=== PATIENT | male | born 1960 | race Caucasian/White ===

== ENCOUNTER 2019-10-31 09:45 | Day surgery (SDC) | payer BC ==
[~2019-10-31] VITALS: Ht 177.8 cm; Wt 88.0 kg
[2019-10-31] VITALS (8 sets, daily range): BP systolic 141–151; BP diastolic 83–88
--- NOTE | 2019-10-31 06:52 | Anethesia Preoperative Eval ---
Anesthesia Pre-op PMH/ROS General Date of Evaluation: Oct 31, 2019 Time of Evaluation: 06:51 Anesthesiologist: santos ASA Score: ASA 2 Mallampati Score Class I : Soft palate, uvula, fauces, pillars visible Class II: Soft palate, uvula, fauces visible Class III: Soft palate, base of uvula visible Class IV: Only hard plate visible Mallampati Classification: Class II Surgeon: iva Diagnosis: gerd Surgical Procedure: egd/colonoscopy Social History: current smoker Family History: no anesthesia problems Allergies: Coded Allergies: PENICILLINS (Verified Allergy, Severe, 10/08/14) lips get swollen Medications: see eMAR Patient NPO?: Yes Past Medical History Gastrointestinal/Genitourinary: Reports: GERD Anesthesia Pre-op Phys. Exam Physician Exam Constitutional: NAD Neurologic: CN 2-12 intact Cardiovascular: RRR Respiratory: CTA Gastrointestinal: S/NT/ND Airway Exam Mallampati Score: Class II MO: limited Neck: flexible TMD: 2fb ROM: limited Anesthesia Pre-op A/P Risk Assessment & Plan Assessment: asa2 Plan: mac Status Change Before Surgery: No Pre-Antibiotics Drug: Lori Rose MD Oct 31, 2019 06:52
[~2019-10-31 09:45] MED LIST: Atropine Inj 1mg/10ml Syr IV PRN; DiphenhydrAMINE 50mg/ml Inj IVP PRN; LR 1000ml 1,000 ML IVLG SCH; Midazolam 2mg/2ml Inj IVP PRN; ZANTAC150 MG ORAL; fentaNYL 100 mcg/2 mL IV PRN
--- NOTE | 2019-10-31 10:23 | Short Stay Surgery H&P ---
History of Present Illness History of Present Illness Chief Complaint Screening colonoscopy. Screening Upper GI. endoscopy HPI Arnie Yung is a 59 year old male who was admitted on for Screening colon and Screening Upper GI tract. Patient History Allergies: Coded Allergies: PENICILLINS (Verified Allergy, Severe, 10/08/14) lips get swollen Medication History Scheduled Ranitidine Hcl* (Zantac*), 150 MG ORAL DAILY, (Reported) Review of Systems Cardiovascular: Reports: no symptoms Respiratory: Reports: no symptoms Skeletal: Reports: no symptoms Gastrointestinal: Reports: no symptoms Genitourinary: Reports: no symptoms Neurologic: Reports: no symptoms Endocrine: Reports: no symptoms Hematologic: Reports: no symptoms Physical Exam Skin: normal HENT: normal Heart: normal Lungs: normal Abdomen: normal Extremities: normal Genitourinary: normal Plan Plan of Care Upper and lower Gi endoscopies and possible biopsies. Preop Interventions None. Summary of Findings See the reports. Attestation Are the patient's medical conditions optimized for surgery? Attestation Response: yes Unique Rose MD Oct 31, 2019 10:22
--- NOTE | 2019-10-31 10:23 | Pre-Procedure Note/Attestation ---
Pre-Procedure Note/Attestation Complete Prior to Procedure Planned Procedure: left Procedure Narrative: Examination of the upper and lower GI tract via endoscopy. Indications for Procedure Pre-Operative Diagnosis: None. Attestation I attest that I discussed the nature of the procedure; its benefits; risks and complications; and alternatives (and the risks and benefits of such alternatives ), prior to the procedure, with the patient (or the patient's legal quality assurance representative). I attest that, if there was a reasonable possibility of needing a blood transfusion, the patient (or the patient's legal quality assurance representative) was given the [place] [employer] standardized written summary, pursuant to the [place] Blood Safety Act ([place] Health and Safety Code # 1645, as amended). I attest that I re-evaluated the patient just prior to the surgery and that there has been no change in the patient's H&P, except as documented below: Unique Rose MD Oct 31, 2019 10:23
[2019-10-31] MEDS ORDERED: TYLENOL325 M1 PO (10:25)
[2019-10-31] MEDS ORDERED: LR 1000ml ONE (11:00)
[2019-10-31] MEDS ORDERED: Propofol 200mg/20ml IV ONE (11:00)
[2019-10-31] MEDS ORDERED: Lidocaine 1% MPF 10mg/ml 5ml ONE (11:00)
[2019-10-31] MEDS ORDERED: Atropine Sulfate 0.4mg/ml inj ONE (11:00)
--- NOTE | 2019-10-31 11:50 | Endoscopy Procedure Note ---
Endoscopy Procedure Note General Indication for Procedure: Screening colon and upper GI Tract Procedures Performed: EGD - Small hiatal hernia and mild gastroduodentis ; biopsies obtaind from the gastric and duodenal bulb areas., colonoscopy - Poor colon preparation with finding of 5 mm pedunculated hyperplastic polyp at rectosigmoid that was removed by cold snare. Highly redundant left colon. Minimal internal hemorrhoids. Specimen: yes Pt Tolerated Procedure Well: Yes Estimated Blood Loss: none Anesthesia Anesthesiologist: Dr. Otero Anesthesia: moderate sedation Medications Medication Given: see anesthesia record Inserted Devices Implant(s) used?: No Quality Quality of Bowel Preparation: Poor Did scope reach the cecum?: Yes Was there any complications?: No GI Core Measures 50 yrs or older w/o bx or poly: Yes 10yrs. F/U recommended: Yes <3yrs. since last colonoscopy: No Med reason:<3 yrs.: Last colonoscopy >= to 3yrs: Yes Unique Rose MD Oct 31, 2019 11:50
--- NOTE | 2019-10-31 11:51 | Discharge Instructions ---
Discharge Instructions Discharge Instructions Follow up with: call for appointment to see the doctor next week. For Congestive Heart Failure Reminder Report to your physician any weight gain of 5 pounds or more in one week. Unique Rose MD Oct 31, 2019 11:51
--- NOTE | 2019-10-31 12:35 | Immediate Post-Op Evaluation ---
Immediate Post-Op Evalulation Immediate Post-Op Evalulation Procedure: egd/[id number] w/bx Date of Evaluation: Oct 31, 2019 Time of Evaluation: 12:03 IV Fluids: 425ml lr Blood Products: none Estimated Blood Loss: negligible Blood Pressure Systolic: 147 Blood Pressure Diastolic: 87 Pulse Rate: 62 Respiratory Rate: 18 O2 Sat by Pulse Oximetry: 100 Temperature (Fahrenheit): 97.0 Pain Score (1-10): 0 Nausea: No Vomiting: No Complications none Patient Status: awake, reacts, patent Hydration Status: adequate Drug: Lori Rose MD Oct 31, 2019 12:35
--- NOTE | 2019-10-31 12:36 | 48 Hour Post Anesthesia Eval ---
Post Anesthesia Evaluation Procedure: egd/[id number] w/bx Date of Evaluation: Oct 31, 2019 Time of Evaluation: 12:05 Blood Pressure Systolic: 148 0: 88 Pulse Rate: 61 Respiratory Rate: 18 Temperature (Fahrenheit): 97.0 O2 Sat by Pulse Oximetry: 100 Airway: patent Nausea: No Vomiting: No Pain Intensity: 0 Hydration Status: adequate Cardiopulmonary Status: stable Mental Status/LOC: patient returned to baseline Post-Anesthesia Complications: none Follow-up care needed: N/A Lori Otero MD Oct 31, 2019 12:36
--- NOTE | 2019-10-31 17:00 | Operative Note - Dictated ---
DATE OF OPERATION: 10/31/2019 SURGEON: Unique Rose M.D. PROCEDURE: Esophagogastroduodenoscopy with biopsy. PREOPERATIVE DIAGNOSIS: Screening upper GI endoscopy. POSTOPERATIVE DIAGNOSIS: Evidence of mild/moderate gastroduodenitis with presence of a small hiatal hernia. Biopsy was taken from the gastric body and antrum and duodenal bulb. MEDICATION USED: Per Dr. Valdes, anesthesiologist. INSTRUMENT: GIF Olympus upper GI video endoscope. DESCRIPTION OF PROCEDURE: The patient after arriving in the endoscopy unit, was told about risks and benefits of the procedure, which he accepted and signed informed consent. At this time, he was put on the left lateral decubitus position. After adequate IV sedation, the scope was gently passed through the cricopharyngeal area, was lodged into the upper esophagus, and was gradually advanced towards gastroesophageal junction. The entire length of esophagus looked normal. No evidence of varices, inflammatory process, or ulceration were seen. There was however presence of a small hiatal hernia of no great significance and certainly there was no Teague's. At this time, the scope was advanced into the stomach. Gastric cavity was distended with insufflation of air. Gradually, the areas of the fundus and the body and antrum were examined, which revealed evidence of [id number] inflammatory process presenting with gastric erythema mostly significantly in the body and the pre-pyloric and pyloric channel area. One biopsy from gastric body and the other one from the pre-pyloric area was obtained and subsequently scope was passed into the duodenal bulb, which revealed evidence of erythema of mild degree over the apex of the duodenum. This area was also biopsied. There were no ulcers or strictures or bleeding. Subsequently, the scope was passed into the second portion of duodenum, which revealed normal findings. At this time, the scope was pulled back into the stomach. A retroflexion maneuver was applied. The area of the gastroesophageal junction was examined in a closer fashion, which revealed no other findings except what is stated earlier. Finally, the scope was pulled out and the procedure was terminated. The patient tolerated the procedure well. Unique Rose M.D. DR: /NELA JOB#: [id number] CC: Craig Huang M.D.; Fax#: [phone]
--- NOTE | 2019-10-31 17:30 | Operative Note - Dictated ---
DATE OF OPERATION: 10/31/2019 SURGEON: Unique Rose M.D. PROCEDURE: Total colonoscopy with polypectomy. PREOPERATIVE DIAGNOSIS: Screening colonoscopy. POSTOPERATIVE DIAGNOSES: 1. Mild internal hemorrhoids. 2. Evidence of hyperplastic polypoid lesion at 5 mm, pedunculated in shape, removed with cold snare. 3. Highly redundant left colon with poor colonic preparation. MEDICATION USED: Per Dr. Valdes, anesthesiologist. INSTRUMENT: GIF Olympus video colonoscope. DESCRIPTION OF PROCEDURE: The patient after arriving endoscopy unit, was told about risks and benefits of the procedure, which he accepted and signed informed consent. This procedure was done basically for screening purposes. At this time, the scope was gently introduced into the anal area, which revealed evidence of minimal internal hemorrhoids of no great significance and it was grade 1. At this time, the scope was advanced further into the rectum and retroflexion maneuver was applied, which revealed evidence of same minimal internal hemorrhoids, but there was no bleeding or friability. The scope was then passed into rectosigmoid area. Incidentally, it was seen that there was a 5 mm pedunculated hyperplastic type of polyp in the rectosigmoid angle, which was grabbed with cold snare and totally removed and the site of the polypectomy did not reveal any bleeding. The specimen was sent to the pathology lab. At this time, the scope was passed through the left colon during significant amount of time because of the colon was not adequately clean and it was poor in quality of preparation. There was also evidence of redundancy of the left colon, which took significant amount of time to go through and the constant washing with the water was required as the colon was filled with liquidy stool type of material. At this time, however, no gross pathology was found. However, the presence of other small polypoid lesion of hyperplastic nature mostly could not be ruled out though I did not see after complete extensive examination any of it. Finally, scope was passed through the splenic flexure guided into the transverse colon and advanced towards hepatic flexure and finally reached to the base of the cecum and the right side of the colon and these areas again were filled with liquidy stool, which had to be cleaned out by irrigation of the water. However, there was no any gross pathology as we reached to the base of the cecum. Finally, the scope was pulled out within 7 minutes and re-evaluation of the colon did not reveal any other abnormalities besides the pathology as mentioned earlier. Finally, the scope was pulled out and procedure was terminated. The patient tolerated the procedure well and left the endoscopy room in good condition. Said Eloy Rose DR: CLIFF JOB#: [id number] CC: Craig Huang M.D.; Fax#: [phone] [facility]
== END 2019-10-31 13:20 | disposition home or self-care (01) ==
LOC: GAS 09:45
DX: Z12.11 Encounter for screening for malignant neoplasm of colon (principal); K64.8 Other hemorrhoids; K63.5 Polyp of colon; K44.9 Diaphragmatic hernia without obstruction or gangrene; K29.90 Gastroduodenitis, unspecified, without bleeding; Z88.0 Allergy status to penicillin; K21.9 Gastro-esophageal reflux disease without esophagitis; F17.200 Nicotine dependence, unspecified, uncomplicated
CPT/HCPCS: 43239; 45385; J0461; J2704; J7120; 94003; 94150